=== PATIENT | female | born 1970 | race Caucasian/White ===

== ENCOUNTER 2018-02-26 18:54 | Emergency (ER) | payer BC ==
--- NOTE | 2018-02-26 19:28 | EDM.PDOC ---
ED HPI GENERAL MEDICAL PROBLEM - General Chief Complaint: Laceration Stated Complaint: L thumb laceration Time Seen by Provider: 02/26/18 19:08 Source of Information: Reports: Patient History Limitations: Reports: No Limitations - History of Present Illness INITIAL COMMENTS - FREE TEXT/NARRATIVE: Esperanza is a 47 yo female who presents to the ER with concerns of a cut to her left thumb. She states she was cutting onions at home. She states it slipped and caught the tip of her thumb. She wasn't able to get the bleeding to stop at home and thought she better have it looked at. She denies any loss of sensation in the distal tip. Tetanus was last given in 2011. - Related Data Allergies Allergy/AdvReac Type Severity Reaction Status Date / Time Penicillins Allergy Rash Verified 02/26/18 18:58 Home Meds: Home Meds Diltiazem HCl [Cartia Xt] 120 mg PO DAILY 02/26/18 [History] Furosemide 20 mg PO DAILY PRN 02/26/18 [History] Lisinopril 10 mg PO BID 02/26/18 [History] Simvastatin 20 mg PO DAILY 02/26/18 [History] Past Medical History Cardiovascular History: Reports: High Cholesterol, Hypertension Musculoskeletal History: Reports: Osteoarthritis - Past Surgical History HEENT Surgical History: Reports: Other (See Below) Other HEENT Surgeries/Procedures: deviated septum surgery Female Surgical History: Reports: Tubal Ligation Social & Family History - Family History Family Medical History: Noncontributory - Tobacco Use Smoking Status *Q: Current Every Day Smoker Years of Tobacco use: 30 Packs/Tins Daily: 0.3 - Recreational Drug Use Recreational Drug Use: No ED ROS GENERAL - Review of Systems Review Of Systems: ROS reveals no pertinent complaints other than HPI. Skin: Reports: Wound Neurological: Denies: Numbness, Paresthesia, Tingling ED EXAM, SKIN/RASH Exam: See Below Exam Limited By: No Limitations General Appearance: Alert, No Apparent Distress Extremities: Normal Capillary Refill Neurological: No Motor/Sensory Deficits Skin: Wound/Incision (.5cm by .8cm flap laceration to distal tip of left thumb. No active bleeding. ) ED SKIN PROCEDURES - Laceration/Wound Repair Left Digit - 1st (Thumb) Lac/Wound length In cm: 1.3 Appearance: Subcutaneous Distal NVT: Neuro & Vascular Intact, No Tendon Injury Skin Prep: Chlorhexidine (Hibiciens) Exploration/Debridement/Repair: Wound Explored, Explored to Base Closed with: Dermabond Tetanus Status Addressed: Yes Complications: No Course - Vital Signs Last Recorded V/S: Last Vital Signs Temp 96.7 F 02/26/18 19:03 Pulse 97 02/26/18 19:03 Resp 18 02/26/18 19:03 BP 155/100 H 02/26/18 19:03 Pulse Ox 100 02/26/18 19:03 Departure - Departure Time of Disposition: 19:28 Disposition: Home, Self-Care 01 Condition: Good Clinical Impression: Laceration of thumb without damage to nail Qualifiers: Encounter type: initial encounter Foreign body presence: without foreign body Laterality: left Qualified Code(s): S61.012A - Laceration without foreign body of left thumb without damage to nail, initial encounter - Discharge Information Instructions: Stitches, [place], or Adhesive Wound Closure, Laceration Care, Adult, [id number] Referrals: Zhanna Shah PA [Primary Care Provider] - Forms: ED Department Discharge Additional Instructions: 1) handout given in regards to laceration and dermabond care 2) if any sign of infection or concerns, recommend reevaluation. 3) Tdap given in 2011, repeat in 2021 - Problem List & Annotations (1) Laceration of thumb without damage to nail SNOMED Code(s): 391251042 Code(s): S61.019A - LACERATION W/O FOREIGN BODY OF THMB W/O DAMAGE TO NAIL, INIT Status: Acute Current Visit: Yes Qualifiers: Encounter type: initial encounter Foreign body presence: without foreign body Laterality: left Qualified Code(s): S61.012A - Laceration without foreign body of left thumb without damage to nail, initial encounter - Assessment/Plan Plan: wound evaluated and elected to close with dermabond. No complications. Distal digit intact. Will discharge at this time. Blood pressure rechecked and 142/72.
== END 2018-02-26 19:38 | disposition home or self-care (01) ==
LOC: CC.ED 18:54
DX: S61.012A Laceration without foreign body of left thumb without damage to nail, initial encounter (principal); F17.210 Nicotine dependence, cigarettes, uncomplicated; E78.00 Pure hypercholesterolemia, unspecified; I10 Essential (primary) hypertension; W45.8XXA Other foreign body or object entering through skin, initial encounter; Z88.0 Allergy status to penicillin; Z79.899 Other long term (current) drug therapy
CPT/HCPCS: 12001; 99282

== ENCOUNTER 2022-03-26 17:04 | Emergency (ER) | payer OTHER ==
[2022-03-26 17:17] VITALS: PULSE 89
[2022-03-26] MEDS: Bacitracin/Neomycin/Polymyxin B Oint 0.9 GM U/D Packet TOP ONE (17:59)
[2022-03-26] MEDS: Lidocaine 1% 5 ML VIAL INJECT ONE (17:59)
== END 2022-03-26 17:33 | disposition home or self-care (01) ==
LOC: CC.ED 17:04
DX: S61.211A Laceration without foreign body of left index finger without damage to nail, initial encounter (principal); E78.00 Pure hypercholesterolemia, unspecified; I10 Essential (primary) hypertension; Z88.0 Allergy status to penicillin; Z79.899 Other long term (current) drug therapy; W26.0XXA Contact with knife, initial encounter
CPT/HCPCS: 12001; 99282